=== PATIENT | born 1980 | race Asian ===

== ENCOUNTER 2024-08-23 07:45 | Day surgery (SDC) | payer OTHER, SELFPAY ==
--- NOTE | 2024-08-23 | PATH_ITS ---
[facility] Accession Number: [id number] No. of containers..01 Tissue . 01 Material submitted: . colon - SIGMOID POLYP . 01 Diagnosis: SIGMOID POLYP: Tubular adenoma. STO 08/27/2024 1507 Local . 01 Electronically signed: . Mack Albright MD, Pathologist NPI- [id number] . 01 Gross description: . Received in formalin with two patient identifiers and sigmoid polyp, is a single saha soft tissue fragment, 0.9 cm in greatest dimension, submitted in A1. ([id number]) /MRV 08/27/2024 1507 Local . 01 Pathologist provided ICD-10: D12.5 . 01 CPT . 343397 Specimen Comment: A courtesy copy of this report has been sent to [phone] Performed at: [address] [facility] [id number] MD Mack Albright MD Phone: [phone]
[2024-08-23 07:57] VITALS: BP 124/76; PULSE 74; RESP 17; TEMP 36.8; O2SAT 99
--- NOTE | 2024-08-23 08:26 | P.HP_ITS ---
History of Present Illness History of Present Illness Date Patient Seen: 08/23/24 Time Patient Seen: 08:26 Chief complaint: Screening Colonoscopy Narrative: Devante is a 44-year-old woman who is here for a screening colonoscopy. She has never had one before. No family history of colon cancer. [facility] Social History Smoking Status: Never smoker alcohol intake: current Meds Home Medications and Allergies Home Medications Medication Instructions Recorded Confirmed Type sodium,potassium,mag sulfates 17.5 See Rx Instructions PO .COMPLEX 07/20/24 Rx gram-3.13 gram-1.6 gram oral soln #354 mL (Suprep Bowel Prep Kit) Allergies Allergy/AdvReac Type Severity Reaction Status Date / Time No Known Drug Allergies Allergy Verified 08/23/24 07:55 Exam Vital Signs (past 8 hours): - 08/23/24 07:57 Temperature 98.2 F Pulse Rate 74 Respiratory Rate 17 Blood Pressure 124/76 Pulse Oximetry 99 Oxygen Delivery Method Room Air Oxygen Delivery Method Room Air Const General: healthy appearing Resp Effort & Inspection: normal respiratory effort Assessment & Plan Assessment and plan (1) Colon cancer screening: Status: Acute Plan We reviewed the risks and benefits of colonoscopy for colon cancer screening and she would like to proceed. Time-Based Coding :: [TOTAL MINUTES] spent with patient and on the chart (including review of chart, obtaining history, exam, reviewing outside data, placing orders, documenting exam and treatment plan, and counseling patient) on [DATE].
--- NOTE | 2024-08-23 09:31 | PM.OP.COLON ---
Operative Date/Time/Diagnoses Date of procedure: 08/23/24 Time of procedure: 09:31 Pre-op diagnosis: Colon cancer screening Post-op diagnosis: same Procedure & Clinicians Study performed: Colonoscopy Same procedure as scheduled: Yes Surgeon: Lauri Donahue Procedure Notes Procedure in detail: Surgeon: Lauri Donahue MD Anesthesia: Danny Eldridge CRNA Procedure: The patient was brought to the endoscopy suite, placed in left lateral decubitus position. The patient was connected to monitoring devices. A time-out was performed. Sedation was administered. Once the patient was adequately sedated, a digital rectal exam was performed and was normal. The scope was then inserted and advanced to the cecum where the appendiceal orifice was identified and photographed. The scope was then slowly withdrawn over greater than 6 minutes. The mucosa was thoroughly inspected. There was a 1 cm polyp in the sigmoid colon removed with a cold snare. The scope was retroflexed in the rectum. No other abnormalities were seen. The scope was straightened and removed. The patient was awakened and brought to recovery. Scope withdrawal time: 10 minutes Sedation time: 17 minute EBL: 5 mL Findings: 1 cm sigmoid colon polyp Post-procedure Disposition: PACU
[2024-08-23 09:35] VITALS: BP 100/59; PULSE 65; RESP 19; TEMP 37.2; O2SAT 97
[2024-08-23 09:40] VITALS: BP 98/64; PULSE 57; RESP 16; TEMP 36.6; O2SAT 98
[2024-08-23 09:45] VITALS: BP 98/74; PULSE 65; RESP 16; O2SAT 99
[2024-08-23 09:49] VITALS: BP 105/70; PULSE 70; RESP 16; O2SAT 98
[2024-08-23 09:55] VITALS: BP 145/74; PULSE 68; RESP 16; TEMP 36.8; O2SAT 98
== END 2024-08-23 10:30 | disposition home or self-care (01) ==
PROVIDERS: PCP Nurse Practitioner Family; Referring Provider Surgery; Visit Provider Surgery
PROC: 0DJD8ZZ Inspection of Lower Intestinal Tract, Via Natural or Artificial Opening Endoscopic (ICD-10-PCS; CPT 45378; principal; 2024-08-23 08:45)
DX: Z12.11 Encounter for screening for malignant neoplasm of colon (principal); D12.5 Benign neoplasm of sigmoid colon
CPT/HCPCS: 45385; J2704